=== PATIENT | female | born 1940 | race Caucasian/White ===

== ENCOUNTER 2018-06-20 05:23 | Emergency (ER) | payer OTHER ==
[~2018-06-20] VITALS: Ht 165.1 cm; Wt 104.3 kg
[2018-06-20 05:33] VITALS: Ht 165.1 cm; Wt 104.3 kg
[2018-06-20 06:56] LABS: BASOPHIL % 0.8 % (0-2); PLATELET COUNT 230 x10^3mcL (130-400); RED CELL DISTRIBUTION WIDTH 14.5 % (11.5-14.5)
[2018-06-20 07:06] LABS: CALCIUM 8.7 mg/dL (8.5-10.1); CARBON DIOXIDE 26.2 mmol/L (21-32); CHLORIDE SERUM 106 mmol/L (98-107); CREATININE SERUM 1.6 mg/dL (0.6-1.0); GLUCOSE SERUM 132 mg/dL (74-106); POTASSIUM SERUM 4.8 mmol/L (3.5-5.1); SODIUM SERUM 141 mmol/L (136-145)
[2018-06-20 07:17] LABS: ALKALINE PHOSPHATASE 109 U/L (46-116); ALT/SGPT 21 U/L (14-59); AST/SGOT 21 U/L (15-37); BILIRUBIN TOTAL 0.4 mg/dL (0.20-1.00); C REACTIVE PROTEIN 0.8 mg/dL (<=0.9); TOTAL PROTEIN, SERUM 6.6 g/dL (6.4-8.2)
[2018-06-20 07:18] LABS: ALBUMIN 3.1 g/dL (3.4-5.0)
[2018-06-20 07:19] LABS: FREE T4 1.1 ng/dL (0.76-1.46); T4(THYROXINE) 7.8 ug/dL (4.7-13.3)
[2018-06-20 07:21] LABS: CK-MB 1.5 ng/mL (0-3.6)
[2018-06-20 07:31] LABS: T3 TOTAL 1.05 ng/mL
[2018-06-20 09:17] LABS: microscopic required? NO
[2018-06-20 09:31] LABS: urine erythrocyte NEGATIVE (NEGATIVE)
[2018-06-20 11:02] LABS: ERYTHROCYTE SED RATE 22 mm/hr (0-30)
[2018-06-20 12:56] VITALS: BP 110/68
== END 2018-06-20 12:56 | disposition home or self-care (01) ==
LOC: ED 05:23
PROVIDERS: Specialist
DX: R60.0 Localized edema (principal); I10 Essential (primary) hypertension; E11.9 Type 2 diabetes mellitus without complications; I48.91 Unspecified atrial fibrillation; Z86.73 Personal history of transient ischemic attack (TIA), and cerebral infarction without residual deficits; Z90.710 Acquired absence of both cervix and uterus; Z98.890 Other specified postprocedural states; Z88.2 Allergy status to sulfonamides; Z88.5 Allergy status to narcotic agent
CPT/HCPCS: 36415; 36600; 83880; 84439; 85378; Q0092